=== PATIENT | female | born 1990 | race Caucasian/White ===

== ENCOUNTER 2018-11-16 15:15 | Outpatient (CLI) | payer BC, OTHER | END 2018-11-16 23:59 | disposition home or self-care (01) | LOC: LAB 15:15 | PROVIDERS: ATTEND Obstetrics & Gynecology | DX: N91.0 Primary amenorrhea (principal) | CPT/HCPCS: 36415; 86900; 86901 ==

== ENCOUNTER 2018-11-21 11:16 | Outpatient (CLI) | payer BC, OTHER | END 2018-11-21 23:59 | disposition home or self-care (01) | LOC: LAB 11:16 | PROVIDERS: ATTEND Obstetrics & Gynecology | DX: O02.1 Missed abortion (principal) | CPT/HCPCS: 36415 ==